=== PATIENT | female | born 1980 | race Caucasian/White ===

== ENCOUNTER → 2018-10-02 | Outpatient (CLI) | payer BC ==
--- NOTE | 2018-10-03 07:42 | US ---
EXAMINATION TYPE: US thyroid st tissue head/neck DATE OF EXAM: 10/02/2018 COMPARISON: NONE CLINICAL HISTORY: R22.1 SWELLING, MASS AND LUMP. Patient feels pain/lump right sided of neck. Patient is on thyroid medication. GLAND SIZE: Right Lobe: 4.7 x 1.7 x 1.3 cm Overall Parenchyma: homogenous Left Lobe: 4.1 x 1.7 x 1.4 cm Overall Parenchyma: homogeneous Isthmus Thickness: 0.25 cm NODULES RIGHT: # of nodules measured on right: 0 LEFT: # of nodules measured on left: 0 ISTHMUS: # of nodules measured in the isthmus: 0 Bilateral neck scanned. Morphologically normal lymph node is seen lateral to right thyroid lobe at pa tient's area of pain measurin.5 x 0.8 x 0.2 cm. Another morphologically normal lymph node is seen lateral to left thyroid lobe measurin.7 x 0.6 x 0.2 cm. IMPRESSION: No discrete thyroid nodule. Palpable abnormalities corresponds to a right-sided nonenlarged morpholog ically normal lymph node. Symmetric nonenlarged lymph node is also seen in the left.
== END | disposition home or self-care (01) ==
LOC: RADUSWWP 16:46
PROVIDERS: ATTEND Family Medicine
DX: R93.89 Abnormal findings on diagnostic imaging of other specified body structures (principal)
CPT/HCPCS: 76536

== ENCOUNTER → 2020-06-23 | Outpatient (CLI) | payer BC | END | disposition home or self-care (01) | LOC: LABWHC1 09:10 | PROVIDERS: ATTEND Family Medicine | DX: U07.1 COVID-19 (principal) | CPT/HCPCS: U0003; C9803 ==